=== PATIENT | female | born 1945 | race American Indian/Alaskan Native ===

== ENCOUNTER 2017-02-07 07:01 | Day surgery (SDC) | payer MEDICARE ==
[2017-02-07 07:45] VITALS: BMI 30.2
[2017-02-07] MEDS ORDERED: Lactated Ringer's 1,000 ML IV ONE (08:15)
--- NOTE | 2017-02-07 08:27 | CP.SDSHP ---
Same Day Surgery H & P - History Proposed Procedure: High risk screening colonoscopy Pre-Op Diagnosis: Personal history of colon polyps - Previous Medical/Surgical History Cardiac: Hypertension Previous Surgical History: Hysterectomy, cholecystectomy, bilateral hernia repair - Allergies Allergies: Allergies Iodine and Iodide Containing Produc Allergy (Intermediate, Verified 02/07/17 07: 45) SHORTNESS OF BREATH nitrofurantoin [From Macrodantin] Allergy (Intermediate, Verified 02/07/17 07:45 ) RASH STEROIDS Allergy (Intermediate, Uncoded 02/07/17 07:45) RASH - Current Medications Current Medications: See reconciliation sheet - Physical Exam General Appearance: WD WN female in NAD Vital Signs: Vital Signs 02/07/17 07:52 Temperature 97.7 F Pulse Rate 76 Respiratory 20 Rate Blood Pressure 144/90 O2 Sat by Pulse 96 Oximetry Mental Status: Alert & Oriented x3 Neuro: WNL Heart: WNL Lungs: WNL GI: WNL - {Optional Preform as Required} Abdomen: WNL - Impression Impression: Personal history of colon polyps Pt. Evaluated Today:Candidate for Anesthesia & Procedure: Yes - Date & Time Date: 02/07/17 Time: 08:27 Short Stay Discharge - Short Stay Discharge Admitting Diagnosis/Reason for Visit: P/H COLON POLYPS Disposition: HOME/ ROUTINE
[2017-02-07] MEDS ORDERED: Lactated Ringer's 500 ML IV SCH (09:00)
[2017-02-07 09:18] VITALS: TEMP 98.3; O2SAT 100
[2017-02-07 09:49] VITALS: RESP 18
[2017-02-07 10:04] VITALS: BP 144/81; PULSE 66
== END 2017-02-07 10:01 | disposition home or self-care (01) ==
LOC: C.ENDO 07:01
PROVIDERS: ATTEND Internal Medicine Gastroenterology
DX: D12.5 Benign neoplasm of sigmoid colon (principal); Z86.010 Personal history of colon polyps; K57.90 Diverticulosis of intestine, part unspecified, without perforation or abscess without bleeding
CPT/HCPCS: 45388; 88305; 88313; 88342; J7120